=== PATIENT | female | born 1965 | race Caucasian/White ===

== ENCOUNTER 2019-01-22 15:48 | Emergency (ER) | payer OTHER | END 2019-01-22 18:29 | disposition home or self-care (01) | LOC: E/R 15:48 | DX: M54.42 Lumbago with sciatica, left side (principal); M54.41 Lumbago with sciatica, right side | CPT/HCPCS: 72100; 99283-25 ==

== ENCOUNTER 2019-02-05 16:34 | Emergency (ER) | payer OTHER ==
[2019-02-05] MEDS: KETOROLAC 30 MG INJ IM (19:11)
== END 2019-02-05 19:20 | disposition home or self-care (01) ==
LOC: FTE 19:20
DX: M54.9 Dorsalgia, unspecified (principal)
CPT/HCPCS: 81025; 96372; 99284-25